=== PATIENT | female | born 1985 | race Caucasian/White ===

== ENCOUNTER 2025-01-18 13:44 | Emergency (ER) | payer OTHER, SELFPAY ==
[2025-01-18] VITALS (7 sets, daily range): BP systolic 119–133; BP diastolic 68–96; PULSE 70–87; RESP 16–19; TEMP 36.3–36.8; O2SAT 95–100
--- NOTE | ~2025-01-18 | XR_ITS ---
EXAMINATION: XR chest 2V 01/18/2025 14:41 INDICATION: Chest pain PROCEDURE: 2 view chest COMPARISON: No prior studies for comparison. FINDINGS: The lungs are clear. The cardiomediastinal silhouette is within normal limits. There are no pleural effusions. There is no pneumothorax suspected. IMPRESSION: 1: NO ACUTE CARDIOPULMONARY DISEASE. Reviewed, dictated and finalized at location A.
--- NOTE | ~2025-01-18 | CT_ITS ---
EXAMINATION: CTA chest PE protocol DATE: 01/18/2025 18:22 CDT INDICATION: Chest pain and shortness of breath with elevated d-dimer a a TECHNIQUE: Computed tomographic angiography (CTA) of the chest was performed with 100 mL Omnipaque-35 0 intravenous contrast. The dose-length product was 1029.08 mGy-cm. Maximum intensity projection 3D-r econstructions of the aorta and other arteries were constructed by the technologist on a separate wor kstation. COMPARISON: None. FINDINGS/OBSERVATIONS: PULMONARY ARTERIES: No filling defect is identified within the main or proximal pulmonary artery. The main pulmonary artery is not enlarged. THORACIC AORTA: No aneurysmal dilatation or dissection is present. The great vessels are intact LUNGS: The lungs are clear MEDIASTINUM: No morphologically suspicious or pathologically enlarged lymph nodes are identified with in the mediastinum or bilateral axilla. BONES OF THE CHEST: No acute fracture. No significant degenerative disease. No lytic or blastic lesions. HEART: The heart is of normal size, without pericardial effusion. UPPER ABDOMEN: The gallbladder is surgically absent. Indeterminate focus of fluid attenuation within the upper pole of the right kidney, likely a cyst for which dedicated ultrasound may be performed for confirmation. IMPRESSION: No pulmonary embolus. No thoracic aortic dissection. The lungs are clear. Indeterminate focus of fluid attenuation within the upper pole of the right kidney, likely a cyst for which dedicated ultrasound may be performed for confirmation. Reviewed, dictated and finalized at location A. IMPRESSION: No pulmonary embolus. No thoracic aortic dissection. The lungs are clear. Indeterminate focus of fluid attenuation within the upper pole of the right kid aspen, likely a cyst for which dedicated ultrasound may be performed for confirma tion.
--- OUTSIDE RECORDS SUMMARY | 2025-01-18 13:47 | XMS_ITS | Encounter Summary ---
Author Organization [facility] Address [address] [place] [address] Phone Care Team Providers Care Tobacco Shaker Name Role Phone Parveen Hall MD Primary Care Provider [phone] Rizwan Miller MD Unavailable Encounter Details Date Type Department Care Team (Late st Contact Info) Description 12/24/2022 Nursing Facility [facility] [place] [place] [address] Mouna Sun MD [address] [place] [address] Social History Tobacco Use Types Packs/Day Years Used Date Smoking Tobacco: Every Day Cigarettes Smokeless Tobacco: Never Alcohol Use Standard Drinks/Week Comments Never 0 (1 standard drink = 0.6 oz pur e alcohol) Sexually Active Control Partners Comments Yes Implant Comments Unknown Sex and Gender Information Value Date Recorded Sex Assigned at Female 04/05/2024 11:54 PM CDT Legal Sex Female 9:25 PM CDT Gender Identity Female 04/05/2024 11:54 PM CDT Sexual Orientation Not on file COVID-19 Exposure Response Date Recorded In the last 10 days, have yo u been in contact with someone who was confirmed or suspected to have Coronavirus/COVID-19? No / Unsure 12/16/2022 9:52 PM CDT documented as of this encounter H&P Notes * J Carlos Silverman 12/24/2022 1:07 PM CDT [facility] Detention History and Physical Chief Complaint: Right facial cellulitis HPI: Sara Borja is a 37 y.o. female who has transferred to [facility] for post-acute care and rehabilitation. Prior to coming to rehabilitation facility patient was hospitalized at [facility] from 12/16/2022 through 12/23/2022 for septicemia from facial cellulitis.At the time of this assessment, the patient was not in any acute distress at the time of this assessment. She says she is doing better but still has some neck pain. She plans on discharging once she completes her course of antibiotics. Patient has morbid obesity and says she snores at night so she would benefit from following up with her PCP as outpatient for a sleep study to check for obstructive sleep apnea. History obtained from: patient, medical records Review of Prior External Notes: [facility] records Allergies: is allergic to acetaminophen-codeine and red dye. Past Medical History: Morbid obesity, Tobacco dependence Surgical History: has a past surgical history that includes Cholecystectomy, Laparoscopic (12/10/2008). Social History: reports that she has been smoking cigarettes. She has been smoking an average of .5packs per day. She has never used smokeless tobacco. She reports current drug use. Drug: Marijuana.She reports that she does not drink alcohol. has 2 daughters. Does not have a home at this point intime. Physical Exam: Vital Signs: All vitals were reviewed in the facility EMR and are stable. Exam: General: Well developed, well nourished, in no distress, morbidly obese Skin: Normal appearance, normal turgor, no rashes, cellulitis on right side of face improving HEENT: Normocephalic, atraumatic, no flaring, swelling of right mandibular angle involving area of right parotid galnd Eyes: nonicteric, intact extra occular movement, PERRL Neck: normal, supple, no lymphadenopathy Heart: regular rate and rhythm, S1, S2 normal, no murmur, click, rub or gallop Lungs: clear to ausculation, normal respirations, normal precautions Abdominal: soft, non-tender; bowel sounds normal; no masses, no organomegaly : external genitalia normal in appearance Extremities: no deformities, joint mobility appears intact, no clubbing Neuro: Non-focal, CN intact, sensory and motor intact Psychological: alert and oriented X3, appropriate mood and affect, Intact judgement and memory Data Review: Lab Results: Lab Results Component Value Date WBC 9.75 12/22/2022 HEMOGLOBIN 11.3 (L) 12/22/2022 HEMATOCRIT 35.5 (L) 12/22/2022 PLATELETCNT 352 12/22/2022 MCV 98.3 (H) 12/22/2022 Lab Results Component Value Date SODIUM 140 12/22/2022 POTASSIUM 3.4 (L) 12/22/2022 CHLORIDE 104 12/22/2022 CO2VEN 25 12/22/2022 GLUCOSE 94 12/22/2022 ANIONGAP 14.4 12/22/2022 BUN 3 (L) 12/22/2022 CREATININE 0.56 (L) 12/22/2022 CALCIUM 8.5 (L) 12/22/2022 No results found for: INR, PTP Imaging: No new imaging. Orders: No new orders Assessment/Plan: 1. Facial cellulitis with septicemia. Her cellulitis on the right side of her face has been improving. She is on IV Ancef through 01/02/2023. Patient has prn oxycodone for pain and hydroxyzine for itching. 2. Generalized weakness and decreased mobilization. The patient is to receive PT and OT at the SNF to improve strength, balance, and mobility back to baseline. 3. Tobacco dependence. Smoking cessation has been strongly encouraged and quitting strategies were discussed with the patient. 4. Morbid Obesity. BMI 43. The patient has been encouraged to lose weight through a healthier diet and exercise and has been educated on the associated health benefits. 5. Anemia. Mild. Hgb stable at 11.3 upon discharge from hospital. Monitor CBC periodically and advise transfusion if Hgb drops below 7.0. VTE Prophylaxis: Mobilization Disposition and escalation or reduction of care: The patient is to receive post- acute care and complete PT and OT at the SNF to improve strength, balance, and mobility back to baseline with the goal of discharging once her IV antibiotic course has been completed. Discharge location is unclear as patient reports that she is currently homeless but has 2 daughters living elsewhere. Advance Care Planning: Aggregate [id number] time, greater than 16 minutes was spent discussing end-of-life care planning with patient/family and/or Power of Environmental Services Lead. Discussed CPR, Intubation, treatment goals, and Quality of life/Intensity of care. Patient desires CPR-Full Treatment I, J Carlos Silverman, acting as a scribe, am personally taking down the notes in the presence of Dr. Mouna Sun M.D. Take no action on this note until reviewed and authenticated by the physician. By: J CARLOS SILVERMAN, 12/24/2022 Primary Care Physician: PARVEEN HALL MD . I evaluated and examined the patient in presence of scribe J Carlos Silverman and reviewed the medical records and the notes above and agree with the content and details of the notes. By: Mouna Sun M.D. Cosigned by Mouna Sun MD at 02/26/2023 4:36 PM CDT documented in this encounter Plan of Treatment Not on file documented as of this encounter Visit Diagnoses Not on filedocumented in this encounter Care Teams Tobacco Shaker Relationship Specialty Start Date End Date Parveen Hall MD [address] [place] [address] PCP - General Family Medicine 12/17/22 Rizwan Miller MD [address] [address] Consulting Physician Colon and Rectal Surgery 04/23/24 documented as of this encounter
--- OUTSIDE RECORDS SUMMARY | 2025-01-18 13:47 | XMS_ITS | Clinical Summary ---
Author Organization [facility] Address [address] [place] [address] Phone Care Team Providers Care Urology Physician Name Role Phone Parveen Moya MD Primary Care Provider [phone] Rizwan Miller MD Unavailable Allergies Active Allergy Reactions Criticality Noted Date Comments Codeine Anaphylaxis 03/27/2024 Red Dye #40 (Allura Red) Anaphylaxis 09/21/2022 Medications ondansetron (ZOFRAN) 4 MG Tablet Take 1-2 Tablets by mouth every 8 hours as needed for Nausea - 1st line. 90 Tablet 04/13/20 Active Additional Information Patient not taking.Reported on 04/25/2024 naloxone HCl (Narcan) 4 MG/0.1ML Liquid 1 Eccles by Nasal route as needed for Opioid Reversal. Administer in one nostril for symptoms of overdose (severe sleepiness, breathing problems, not responsive). Call 911. May repeat 1 spray in alternate nostril in 2-3 minutes if needed. 2 Each 04/13/20 24 Active naloxone HCl (Narcan) 4 MG/0.1ML Liquid 1 Eccles by Nasal route as needed for Opioid Reversal. Administer in one nostril for symptoms of overdose (severe sleepiness, breathing problems, not responsive). Call 911. May repeat 1 spray in alternate nostril in 2-3 minutes if needed. 2 Each 04/13/20 24 Active ondansetron (ZOFRAN-ODT) 4 MG TABLET DISPERSIBLE Take 1 Tablet by mouth every 8 hours as needed for Nausea - 1st line. 20 Tablet 04/22/20 24 Active HYDROmorphone (Dilaudid) 2 MG TabletIndications: Acute diverticulitis Take 1 Tablet by mouth every 6 hours as needed for Moderate or more severe pain. 20 Tablet 04/23/20 24 Active HYDROcodone-acetam inophen (NORCO) 5-325 MG TabletIndications: Torticollis Take 1-2 Tablets by mouth every 4 hours as needed for Moderate or more severe pain. 20 Tablet 11/09/19 25 Active Active Problems Problem Noted Date Diagnosed Date Tobacco dependence 09/07/2023 Diverticulitis 02/26/2023 Morbid obesity 12/19/2022 Abscess of sigmoid colon due to diverticulitis 0 09/22/2022 Hypocalcemia 09/22/2022 Chronic constipation 09/22/2022 Septicemia 09/22/2022 Colonic diverticular abscess 06/06/2022 Tobacco abuse Morbid obesity ETOH abuse Resolved Problems Problem Noted Date Diagnosed Date Resolved Date Acute diverticulitis 03/30/2024 024 Cellulitis of left lower extremity 09/07/2023 09/10/2023 Hyponatremia 12/17/2022 09/10/2023 Facial cellulitis 12/16/2022 12/23/2022 Encounters Date Type Department Care Team Description 11/07/2024 7:15 PM CDT - 11/07/2024 11:55 PM CDT Emergency [facility] Emergency [address] [place] [address] Grant Martin MD Torticollis Discharge Disposition: Discharged to home or Selfcare 11/07/2024 Travel from Last 3 Months Family History Medical History Relation Name Comments No Known Problems Brother No Known Problems Daughter 1 No Known Problems Daughter 2 Congestive Heart Failure Father No Known Problems Half-Brother 1 No Known Problems Half-Brother 2 Other-comment Half-Sister paraplegic Diabetes Mother Stroke Mother Relation Name Status Comments Brother Daughter 1 Alive Daughter 2 Alive Father Half-Brother 1 Alive Half-Brother 2 Alive Half-Sister Mother Alive Social History Tobacco Use Types Packs/Day Years Used Date Smoking Tobacco: Every Day Cigarettes 1 23.6 Started: 2001 Smokeless Tobacco: Never Tobacco Cessation:Ready to Q uit: Not Asked; Counseling Given: Not Answered Alcohol Use Standard Drinks/Week Comments Yes 0 (1 standard drink = 0.6 oz pure alcohol) used to drink 1/5 a day, now less [facility] Utilities Answer Date Recorded In the past 12 months has e electric, gas, oil, or water company threatened to shut off services in your home? Patient declined 04/08/2024 Social Connection and Isolation Panel Answer Date Recorded In a typical week, how many times do you talk on the phone with family, friends, or neighbors? Patient declined 04/08/2024 How often do you get togethe r with friends or relatives? Patient declined 04/08/2024 How often do you attend adventism or islam serv ices? Patient declined 04/08/2024 Do you belong to any clubs o r organizations such as adventism groups, unions, fraternal or athletic groups, or school groups? Patient declined 04/08/2024 How often do you attend meet ings of the clubs or organizations you belong to? Patient declined 04/08/2024 Are you , , di vorced, , never , or living with a partner? Patient declined 04/08/2024 AUDIT-C Answer Date Recorded Q1: How often do you have a drink containing alc ohol? Patient declined 04/08/2024 Q2: How many drinks containi ng alcohol do you have on a typical day when you are drinking? Patient declined 04/08/2024 Q3: How often do you have si x or more drinks on one occasion? Patient declined 04/08/2024 Overall Financial Resource Strain (CARDIA) Answe r Date Recorded How hard is it for you to pa y for the very basics like food, housing, medical care, and heating? Patient declined 04/08/2024 [facility] - Occupational Stress Questionnaire Answer Date Recorded Do you feel stress - tense, restless, nervous, or anxious, or unable to sleep at night because your mind is troubled all the time - these days? Patient declined 04/08/2024 Exercise Vital Sign Answer Date Recorde d On average, how many days pe r week do you engage in moderate to strenuous exercise (like a brisk walk)? Patient declined On average, how many minutes do you engage in exercise at this level? Patient declined 04/08/2024 Hunger Vital Sign Answer Date Recorded Within the past 12 months, y ou worried that your food would run out before you got the money to buy more. Patient declined Within the past 12 months, t he food you bought just didn't last and you didn't have money to get more. Patient declined 08/2023 PRAPARE - Transportation Answer Date Re corded In the past 12 months, has l ack of transportation kept you from medical appointments or from getting medications? Patient declined 04/08/2024 In the past 12 months, has l ack of transportation kept you from meetings, work, or from getting things needed for daily living? Patient declined 04/08/2024 Housing Stability Vital Sign Answer Eric e Recorded In the last 12 months, was t here a time when you were not able to pay the mortgage or rent on time? Patient declined 09/07/19 In the last 12 months, how many places have you lived? 1 09/07/2023 In the last 12 months, was t here a time when you did not have a steady place to sleep or slept in a senior care (including now)? Patient declined 09/07/2023 Housing Stability Vital Sign Answer Eric e Recorded In the last 12 months, was t here a time when you were not able to pay the mortgage or rent on time? Patient declined 04/08/20 In the past 12 months, how m any times have you moved where you were living? 1 04/08/2024 At any time in the past 12 m [facility], were you homeless or living in a senior care (including now)? Patient declined 04/08/2024 Sexually Active Control Partners Comments Yes Implant Male Comments No Sex and Gender Information Value Date Recorded Sex Assigned at Female 04/05/2024 11:54 PM CDT Legal Sex Female 9:25 PM CDT Gender Identity Female 04/05/2024 11:54 PM CDT Sexual Orientation Not on file Last Filed Vital Signs Vital Sign Reading Time Taken Comments Blood Pressure 149/62 11/07/2024 11:30 PM CDT Pulse 71 11/07/2024 11:30 PM CDT Temperature 36.7 C (98.1 F) 11/07/2024 7:20 PM CDT Respiratory Rate 18 11/07/2024 7:16 PM CDT Oxygen Saturation 98% 11/07/2024 11:30 PM CDT Inhaled Oxygen Concentration - - Weight 99.8 kg (220 lb) 11/07/2024 7:16 PM CDT Height 160 cm (5' 3) 11/07/2024 7:16 PM CDT Body Mass Index 38.97 11/07/2024 7:16 PM CDT Plan of Treatment Health Maintenance Due Date Last Done Comments TdaP Immunization 1986 Hepatitis B Immunization (1 of 3 - 19+ 3-dose series) 2005 Pneumococcal Immunization Co mbined (1 of 2 - PCV) 2005 Pap Smear 2007 Human Papillomavirus (HPV) Immunization (1 - 3-dose SCDM series) 2013 Cervical Cancer Screening (CCS) 2016 HPV/Cotest 2016 SARS-COV-2 Immunization ( season) 2024 Influenza Immunization (#1) 2025 Respiratory Syncytial Virus (RSV) Immunization (Adult) (1 - 1-dose 75+ series) 2061 Hepatitis C Virus (HCV) Screening Completed 023 Meningococcal Immunization (ACWY) Aged Out No longer eligible based on patient's age to complete this topic Rotavirus Immunization Aged Out No lo nger eligible based on patient's age to complete this topic Procedures Procedure Name Priority Date/Time Associated Diagnosis Comments CT CERVICAL SPINE WO/ CONTRAST Stat with Interpretation 11/07/2024 8:47 PM CDT GOLD TOP TUBE STAT 11/07/2024 7:30 PM CDT BLUE TOP TUBE STAT 11/07/2024 7:30 PM CDT CBC WITH AUTO DIFFERENTIAL STAT 11/07/2024 7:30 PM CDT EXTRA TUBES STAT 11/07/2024 7:30 PM CDT ERYTHROCYTE SEDIMENTATION RATE (ESR) STAT 11/07/2024 7:30 PM CDT CMP (COMPREHENSIVE METABOLIC PANEL) STAT 11/07/2024 7:30 PM CDT COMPLETE BLOOD COUNT (CBC) WITH DIFF STAT 11/07/2024 7:30 PM CDT from Last 3 Months Results * CT CERVICAL SPINE WO/ CONTRAST (11/07/2024 8:47 PM CDT) Anatomical Region Laterality Modality Spine N/A Computed Tomogra phy 11/07/2024 9:00 PM CDT Impressions 11/07/2024 9:02 PM CDT IMPRESSION: Unremarkable cervical spine CT. Narrative 11/07/2024 9:02 PM CDT EXAM DESCRIPTION: CT CERVICAL SPINE WO/ CONTRAST REASON FOR STUDY: Neck pain TECHNIQUE: Axial images through the cervical spine with sagittal and coronal reformatted images. Automated exposure control was used as a dose optimization technique for this examination. COMPARISON: None FINDINGS: ALIGNMENT: Normal. VERTEBRAE: No fracture. Vertebral body heights well-maintained. DISCS: Intervertebral disc narrowing and minor marginal spurring is seen at C5-C6. Other levels are better preserved. HARDWARE: None in the spine. INDIVIDUAL DISC LEVELS: No significant osseous spinal canal or neural foraminal stenosis. UPPER THORACIC: Incompletely imaged. No significant osseous spinal stenosis or osseous neural foraminal stenosis. SKULL BASE: No significant finding. LUNG APICES: No significant abnormality. NECK SOFT TISSUES: No significant abnormality. OTHER: No other significant findings. THIS IS AN ELECTRONICALLY VERIFIED FINAL REPORT 11/07/2024 9:00 PM - Electronically signed by Ryan Talavera M.D. KH: RODRI Report ID: [id number] Reading Location: [id number] Procedure Note Ryan Talavera MD - 11/07/2024 EXAM DESCRIPTION: CT CERVICAL SPINE WO/ CONTRAST REASON FOR STUDY: Neck pain TECHNIQUE: Axial images through the cervical spine with sagittal and coronal reformatted images. Automated exposure control was used as a dose optimization technique for this examination. COMPARISON: None FINDINGS: ALIGNMENT: Normal. VERTEBRAE: No fracture. Vertebral body heights well-maintained. DISCS: Intervertebral disc narrowing and minor marginal spurring is seen at C5-C6. Other levels are better preserved. HARDWARE: None in the spine. INDIVIDUAL DISC LEVELS: No significant osseous spinal canal or neural foraminal stenosis. UPPER THORACIC: Incompletely imaged. No significant osseous spinal stenosis or osseous neural foraminal stenosis. SKULL BASE: No significant finding. LUNG APICES: No significant abnormality. NECK SOFT TISSUES: No significant abnormality. OTHER: No other significant findings. THIS IS AN ELECTRONICALLY VERIFIED FINAL REPORT 11/07/2024 9:00 PM - Electronically signed by Ryan Talavera M.D. KH: RODRI Report ID: [id number] Reading Location: [id number] IMPRESSION: Unremarkable cervical spine CT. Grant Martin MD IMG CT ORDERABLES Final R esult * GOLD TOP TUBE (11/07/2024 7:30 PM CDT) Blood No Phlebotomy Charged / Unknown 11/07/2024 7:30 PM CDT 11/07/2024 8:40 PM CDT Grant Martin MD CHEMISTRY ORDERABLES Cora l Result Performing Organization Address City/[facility] Co de Phone Number [facility] [address] [place] [address] * BLUE TOP TUBE (11/07/2024 7:30 PM CDT) Blood No Phlebotomy Charged / Unknown 11/07/2024 7:30 PM CDT 11/07/2024 8:40 PM CDT Grant Martin MD HEMATOLOGY ORDERABLES Fin al Result Performing Organization Address City/[facility] Co de Phone Number [facility] [address] [place] [address] * (ABNORMAL) CBC WITH AUTO DIFFERENTIAL (11/07/2024 7:30 PM CDT) WBC 11.15 4.00 - 12.00 10(3)/mcL 11/07/2024 8:43 PM CDT [facility] RBC 3.94 3.80 - 5.30 10(6)/mcL 11/07/2024 8:43 PM CDT [facility] HEMOGLOBIN (HGB) 13.3 12.0 - 15.8 g/dL 11/07/2024 8:43 PM CDT [facility] HEMATOCRIT (HCT) 40.3 36.0 - 47.0 % 11/07/2024 8:43 PM CDT [facility] MCV 102.3(H) 82.0 - 96.0 fL 11/07/2024 8:43 PM CDT [facility] MCH 33.8 26.0 - 34.0 pg 11/07/2024 8:43 PM CDT [facility] MCHC 33.0 31.0 - 36.0 g/dL 11/07/2024 8:43 PM CDT [facility] PLATELET COUNT 334 140 - 440 10(3)/mcL 11/07/2024 8:[address] [facility] RDW 15.0 11.8 - 15.5 % 11/07/2024 8:[address] [facility] MPV 9.1(L) 9.7 - 12.4 fL 11/07/2024 8:[address] [facility] NEUTROPHILS 78.2(H) 47.0 - 73.0 % 11/07/2024 8:43 PM CDT [facility] LYMPHOCYTES 16.0(L) 18.0 - 42.0 % 11/07/2024 8:43 PM CDT [facility] MONOCYTES 4.3 4.0 - 12.0 % 11/07/2024 8:[address] [facility] EOSINOPHILS 1.1 0.0 - 5.0 % 11/07/2024 8:43 PM CDT [facility] BASOPHILS 0.4 0.0 - 1.0 % 11/07/2024 8:43 PM CDT [facility] ABSOLUTE NEUTROPHILS 8.73(H) 1.60 - 7.70 10(3)/[facility] 11/07/2024 8:43 PM CDT [facility] ABSOLUTE LYMPHOCYTES 1.78 1.30 - 3.20 10(3)/[facility] 11/07/2024 8:43 PM CDT [facility] ABSOLUTE MONOCYTES 0.48 0.20 - 1.00 10(3)/[facility] 11/07/2024 8:43 PM CDT [facility] ABSOLUTE EOSINOPHIL 0.12 0.00 - 0.40 10(3)/[facility] 11/07/2024 8:43 PM CDT [facility] ABSOLUTE BASOPHILS 0.04 0.00 - 0.10 10(3)/[facility] 11/07/2024 8:43 PM CDT [facility] NRBC PER 100 WBC 0 11/08/19 25 8:43 PM CDT [facility] Blood Venipuncture / Unknown 11/07/2024 7:30 PM CDT 11/07/2024 8:41 PM CDT Grant Martin MD HEMATOLOGY ORDERABLES Fin al Result [facility] [address] [place] [address] * (ABNORMAL) ERYTHROCYTE SEDIMENTATION RATE (ESR) (11/07/2024 7:30 PM CDT) ESR (SED RATE, ERYTHROCYTE SEDIMENTATION RATE) 52(H) <20 mm/h 11/07/2024 8:48 PM CDT [facility] Comment: Patients presenting with increased level of fibrinogen, gamma globulins, or abnormally shaped RBCs could affect the results for the erythrocyte sedimentation rate (ESR). Results should be clinically correlated. Blood Venipuncture / Unknown 11/07/2024 7:30 PM CDT 11/07/2024 8:41 PM CDT Grant Martin MD HEMATOLOGY ORDERABLES Fin al Result [facility] [address] [place] [address] * (ABNORMAL) CMP (COMPREHENSIVE METABOLIC PANEL) (11/07/2024 7:30 PM CDT) SODIUM 138 136 - 145 mmol/L 11/07/2024 9:03 PM CDT [facility] POTASSIUM 3.7 3.5 - 5.1 mmol/L 11/07/2024 9:03 PM CDT [facility] CHLORIDE 108(H) 98 - 107 mmol/L 11/07/2024 9:03 PM CDT [facility] CO2, VENOUS 23 22 - 30 mmol/L 11/07/2024 9:[address] [facility] ANION GAP 10.7 <18.0 mmol/L 11/07/2024 9:[address] [facility] GLUCOSE 108(H) 70 - 99 mg/dL 11/07/2024 9:[address] [facility] BUN 10 5 - 18 mg/dL 11/07/2024 9:[address] [facility] CREATININE, BLOOD 0.83 0.60 - 1.00 mg/dL 11/07/2024 9:[address] [facility] BUN/CREATININE RATIO 12 12 - 20 ratio 11/07/2024 9:[address] [facility] TOTAL PROTEIN 7.3 6.0 - 8.0 g/dL 11/07/2024 9:[address] [facility] ALBUMIN 3.7 3.5 - 5.0 g/dL 11/07/2024 9:[address] [facility] A/G RATIO 1.0 1.0 - 2.2 11/07/2024 9:[address] [facility] CALCIUM 8.8 8.7 - 10.5 mg/dL 11/07/2024 9:[address] [facility] T BILI 0.3 0.2 - 1.2 mg/dL 11/07/2024 9:03 PM CDT [facility] SGOT (AST) 25 <43 U/L 11/07/2024 9:03 PM CDT [facility] SGPT (ALT) 26 <56 U/L 11/07/2024 9:03 PM CDT [facility] ALKALINE PHOSPHATASE 89 40 - 150 U/L 11/07/2024 9:03 PM CDT [facility] GFR, ESTIMATED >60 >=60 11/07/2024 9:[address] [facility] Comment: Creatinine Clearance is the preferred criteria for selecting drug dose adjustments in renally impaired patients. The GFR is provided as additional pertinent clinical information. GFR is reported in mL/min/1.73 sq m. Calculation based on the Chronic Kidney Disease Epidemiology Collaboration (CKD- EPI) equation refit without adjustment for race. GFR, EST. >60 >=60 025 9:03 PM CDT [facility] GFR, EST. NONAFRICAN >60 >=60 11/07/2024 9:[address] [facility] Blood Venipuncture / Unknown 11/07/2024 7:30 PM CDT 11/07/2024 8:41 PM CDT Grant Martin MD CHEMISTRY ORDERABLES Cora hastings Result [facility] [address] [place] [address] from Last 3 Months Insurance MEDICAID [employer] [facility] Advance Directives * Full Code (Latest Code Status on File) Date Activated Date Inactivated Comments 04/08/2024 7:02 PM CPR-Full Treat ment: FULL ARREST: Attempt Resuscitation/CPR wit intubation and mechanical ventilation. PRE-ARREST: Use entire range of life support measures to stabilize the patient. * Full Code Date Activated Date Inactivated Comments 03/30/2024 1:30 PM 04/08/2024 7:02 PM CPR-Full Tr eatment: FULL ARREST: Attempt Resuscitation/CPR wit intubation and mechanical ventilation. PRE-ARREST: Use entire range of life support measures to stabilize the patient. * Full Code Date Activated Date Inactivated Comments 09/07/2023 10:20 AM 09/10/2023 9:03 PM CPR-Full Merly tment: FULL ARREST: Attempt Resuscitation/CPR wit intubation and mechanical ventilation. PRE-ARREST: Use entire range of life support measures to stabilize the patient. * Full Code Date Activated Date Inactivated Comments 02/26/2023 1:11 PM 02/27/2023 6:32 PM CPR-Full Edgar atment: FULL ARREST: Attempt Resuscitation/CPR wit intubation and mechanical ventilation. PRE-ARREST: Use entire range of life support measures to stabilize the patient. * Full Code Date Activated Date Inactivated Comments 12/16/2022 10:32 PM 12/23/2022 3:07 PM CPR-Full Tr eatment: FULL ARREST: Attempt Resuscitation/CPR wit intubation and mechanical ventilation. PRE-ARREST: Use entire range of life support measures to stabilize the patient. Care Teams Urology Physician Relationship Specialty Start Date End Date Parveen Moya MD [address] [place] [address] PCP - General Family Medicine 12/17/22 Rizwan Miller MD [address] [address] Consulting Physician Colon and Rectal Surgery 04/23/24
--- OUTSIDE RECORDS SUMMARY | 2025-01-18 13:47 | XMS_ITS | Encounter Summary ---
Author Organization [facility] Address [address] [place] [address] Phone Care Team Providers Care Gin Clerk Name Role Phone Parveen Moya MD Primary Care Provider [phone] Rizwan Miller MD Unavailable Encounter Details Date Type Department Care Team (Late st Contact Info) Description 12/29/2022 Nursing Facility [facility] [address] CUSTODIAL SERVICES [facility] [place] [address] Rodríguez Patel, [facility] [address] [place], [place] [id number] Social History Tobacco Use Types Packs/Day Years [...] PM CDT documented as of this encounter Progress Notes * Rodríguez Patel, PAC - 12/29/2022 11:54 AM CDT [facility] NURSING PROGRESS NOTE Sara Borja is a 37 y.o. female at [facility] for rehabilitation. Prior to coming to rehabilitation facility patient was hospitalized at [facility] from 12/16/2022 through 12/23/2022 for septicemia from facial cellulitis. Subjective: Interval History: Patient is currently lying comfortably in bed. Still having quite a bit of pain and has some swelling below her right ear at the angle of her drawbut overall seems to be improving. Has no acute medical symptoms or concerns at this time. Does claim that sometime she does not get the IV antibiotics as prescribed by nursing staff for unclear reasons. Discussed with nursing staff who says that these claims are fictitious. 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 Upon arrival to facility her 1st 2 doses of antibiotics were missed because pharmacy needs some time to get these medications in house. Clinically she looks well. Past medical history: Obesity Cigarette smoking Family History Problem Relation Age of Onset ??? No Known Problems Mother ??? No Known Problems Father Social History Socioeconomic History ??? Marital status: Single Spouse name: Not on file ??? Number of children: Not on file ??? Years of education: Not on file ??? Highest education level: Not on file Occupational History ??? Not on file Tobacco Use ??? Smoking status: Every Day Packs/day: 0.50 Types: Cigarettes ??? Smokeless tobacco: Never Substance and Sexual Activity ??? Alcohol use: Never ??? Drug use: Yes Types: Marijuana ??? Sexual activity: Yes control/protection: Implant Other Topics Concern ??? Not on file Social History Narrative ??? Not on file Past Surgical History: Procedure Laterality Date ??? CHOLECYSTECTOMY, LAPAROSCOPIC 12/10/2008 Review of Systems: A 14 point comprehensive review of systems was negative except what is documented in interval history above. Objective: Exam: Vital Signs: Recent vital signs were reviewed in the electronic medical records at nursing facility and are unremarkable. General: Well developed, well nourished, in no distress - pleasant, obese Skin: Normal appearance, normal turgor, no rashes - at the angle of right draw pedal that ear thereis an approximately 4 cm in diameter indurated area with some faint overlying erythema, no fluctuance or drainage HEENT: Normocephalic, atraumatic, no flaring Eyes: nonicteric, intact extra occular movement, PERRL Neck: normal, supple, no lymphadenopathy Heart: regular rate and rhythm, S1, S2 normal, no murmur, click, rub or gallop Lungs: clear to ausculation, normal respirations with no accessory muscle use, normal rate Abdominal: soft, non-tender; bowel sounds normal; no masses, no organomegaly Extremities: no deformities, joint mobility appears intact, no clubbing Neuro: Non-focal, CN intact, sensory and motor intact Psychological: alert and oriented X3, appropriate mood and affect, Intact judgement and memory Lab Results: 12/22/2022 while at the hospital: BMP with potassium 3.4 otherwise unremarkable. CBC with hemoglobin 11.3 otherwise unremarkable. Imaging: None Assessment/Plan: Facial cellulitis with septicemia On IV Ancef P.r.n. pain medications 12/29/2022: Infection continues to improve. Originally supposed to be on IV Ancef until 01/02/2023 per Infectious Disease. Due to pharmacy issues and patient leaving the facility, she has missed a total of 3 doses so I will recommend continuing it through 01/03/2023. After which PICC line can be pulled. Cigarette smoking Educated on cessation options encouraged to quit Morbid obesity Educated on weight loss strategies and encouraged to lose weight VTE Prophylaxis: Activity I discussed advanced care planning with this patient. Disposition: From medical standpoint she will complete her IV antibiotics on the evening of 01/03/2023, after which PICC line can be pulled and she can be discharged. This note was dictated using M*Modal fluency dictation system and there may be errors in body care manager. Despite proof reading the note, there may be mistakes and I apologize for those. By: RAISSA Diaz, 12/29/2022 11:54 AM CDT documented in this encounter Plan of Treatment Not on file documented as of this encounter Visit Diagnoses Not on filedocumented in this encounter Care Teams Gin Clerk Relationship Specialty Start Date End Date Parveen Moya MD [address] [place] [address] PCP - General Family Medicine 12/17/22 Rizwan Miller MD [address] [address] Consulting Physician Colon and Rectal Surgery 04/23/24 documented as of this encounter
--- OUTSIDE RECORDS SUMMARY | 2025-01-18 13:47 | XMS_ITS | Clinical Summary ---
Author Organization [facility] [employer] [facility] Address [address] [place] [address] Care Team Providers Care Clinical Engineer Name Role Phone Unavailable Primary Care Provider Unavailabl e Source Comments [facility],non-owned Affiliates and Associated Physician Practices is amultiple site organization consisting of ambulatory clinics and hospital sitesin [place], [place], [place] and [place]. This disclosure is being madepursuant to the Care Everywhere program and may not contain all information available regarding this patient. Last updated 18.[facility] Allergies Active Allergy Reactions Criticality Noted Date Comments Acetaminophen-Codeine Angioedema High 09/25/2022 Medications * Be aware that medications may not be up to date on this document. Alwaysverify current medications with the patient. acetaminophen (Tylenol) 500 MG tabletIndicati ons:Pain Take 1 (one) tablet by mouth every 4 hours as needed for Fever or Pain Maximum allowable Acetaminophen amount = 4 Grams (4000 mg) / 24 hours. Reasons: Pain Active ondansetron (Zofran) 4 MG tablet Take 1 (one) tablet by mouth every 8 hours as needed for Nausea/Vomiting 15 tablet 3 Active HYDROcodone-ac etaminophen ([place]) 5-325 MG tabletIndicati ons:Diverticul itis of colon Take 1 (one) tablet by mouth every 6 hours as needed for Pain 12 tablet 3 Active polyethylene glycol (Golytely) 236 g solution Drink prep solution at 5pm the night before your colonoscopy 4000 mL 3 Active Active Problems Problem Noted Date Diagnosed Date Diverticulitis of colon 09/24/2022 Smoking greater than 10 pack years 09/19/2022 Social History Tobacco Use Types Packs/Day Years Used Date Smoking Tobacco: Some Days Cigarettes 0.3 12.6 Started: 2012 Tobacco Cessation:Ready to Q uit: No; Counseling Given: No Alcohol Use Standard Drinks/Week Comments Never 0 (1 standard drink = 0.6 oz pur e alcohol) AUDIT-C Answer Date Recorded Q1: How often do you have a drink containing alcohol? Never 09/25/2022 Q2: How many drinks containi ng alcohol do you have on a typical day when you are drinking? Patient does not drink Q3: How often do you have si x or more drinks on one occasion? Never 09/25/2022 Overall Financial Resource Strain (CARDIA) Answe r Date Recorded How hard is it for you to pa y for the very basics like food, housing, medical care, and heating? Very hard 09/25/2022 [facility] of Occupat ional Health - Occupational Stress Questionnaire Answer Date Recorded Do you feel stress - tense, restless, nervous, or anxious, or unable to sleep at night because your mind is troubled all the time - these days? Very much 09/25/2022 Hunger Vital Sign Answer Date Recorded Within the past 12 months, y ou worried that your food would run out before you got the money to buy more. Sometimes true Within the past 12 months, t he food you bought just didn't last and you didn't have money to get more. Sometimes true PRAPARE - Transportation Answer Date Re corded In the past 12 months, has l ack of transportation kept you from medical appointments or from getting medications? No 09/05 In the past 12 months, has l ack of transportation kept you from meetings, work, or from getting things needed for daily living? No 09/25/2022 Housing Stability Vital Sign Answer Eric e Recorded In the last 12 months, was t here a time when you were not able to pay the mortgage or rent on time? Yes 09/25/2022 In the last 12 months, how many places have you lived? 3 09/25/2022 In the last 12 months, was t here a time when you did not have a steady place to sleep or slept in a half-way (including now)? Yes 09/25/2022 Comments No Sex and Gender Information Value Date Recorded Sex Assigned at Not on file Legal Sex Female 3:51 PM CDT Gender Identity Not on file Sexual Orientation Not on file Last Filed Vital Signs Vital Sign Reading Time Taken Comments Blood Pressure 91/57 10/10/2022 6:13 AM CDT Pulse 45 10/10/2022 6:13 AM CDT Temperature 36.7 C (98.1 F) 10/10/2022 6:13 AM CDT Respiratory Rate 18 10/09/2022 8:24 PM CDT Oxygen Saturation 100% 10/10/2022 6:13 AM CDT Inhaled Oxygen Concentration - - Weight 118.8 kg (262 lb) 09/25/2022 12:49 PM CDT Height 160 cm (5' 2.99) 10/06/2022 9:58 AM CDT Body Mass Index 46.42 09/25/2022 12:49 PM CDT Plan of Treatment Health Maintenance Due Date Last Done Comments DTAP/TDAP/TD VACCINES (1 - Tdap) 2005 HEPATITIS B VACCINE (1 of 3 - 19+ 3-dose series) 2005 PNEUMOCOCCAL VACCINE (1 of 2 - PCV) 2005 PAP SMEAR 2007 HPV VACCINE (1 - 3-dose SCDM series) 2013 COVID-19 VACCINE (1 - 2023-2 5 season) 2024 DEPRESSION SCREENING 06/06/2024 INFLUENZA VACCINE (#1) 2025 ZOSTER VACCINE (1 of 2) 2036 HEPATITIS C SCREENING Completed 09/28/2022 HIV SCREENING Completed 09/28/2022 HIB VACCINE Aged Out No longer eligi ble based on patient's age to complete this topic MENINGOCOCCAL (Group B) VACC INE SHARED DECISION-MAKING Aged Out No longer eligibl e based on patient's age to complete this topic MENINGOCOCCAL GROUPS A/C/Y/W VACCINE Aged Out No longer eligible b ased on patient's age to complete this topic Procedures Procedure Name Priority Date/Time Associated Diagnosis Comments HEPATITIS C AB SCREEN RFLX NAAT QUANT STAT 09/28/2022 8:15 AM CDT HIV-1 HIV-2 ANTIBODY + HIV P24 AG PANEL STAT 09/28/2022 8:15 AM CDT from Last 3 Months or Most Recently Relevant to Health Maintenance Results * HEPATITIS C AB SCREEN RFLX NAAT QUANT (09/28/2022 8:15 AM CDT) Hepatitis C Antibody Non-react julián Non-reac tive 09/28/2022 9:30 AM CDT [facility] Comment:Hepatitis C Antibody screen indicates no serologic evidence of past or current infection with Hepatitis C Virus. Patients with unexplained liver disease who are immunocompromised or suspected of having acute Hepatitis C infection may benefit from Nucleic Acid Test (CINDY) for Hepatitis C Viral RNA to confirm Hepatitis C status. Blood BLOOD SPECIMEN / Unknown Lab Venipuncture / Unknown 09/28/2022 8:15 AM CDT 09/28/2022 8:39 AM CDT Dylon Betancourt MD LAB - CHEMISTRY ORDERABLES Fin al Result Performing Organization Address City/[facility]/ZIP Co de Phone Number [address] [address], [place] [phone] * HIV-1 HIV-2 ANTIBODY + HIV P24 AG PANEL (09/28/2022 8:15 AM CDT) Pathologist [facility] HIV Antigen/Antibod y 1 & 2 Non-reacti ve Non-react julián 09/28/2022 9:30 AM CDT [facility] Comment:No Laboratory eviden ce of HIV infection. Blood BLOOD SPECIMEN / Unknown Lab Venipuncture / Unknown 09/28/2022 8:15 AM CDT 09/28/2022 8:39 AM CDT Dylon Betancourt MD LAB - CHEMISTRY ORDERABLES Fin al Result Performing Organization Address City/[facility]/ZIP Co de Phone Number [address] [address], [place] [phone] from Last 3 Months or Most Recently Relevant to Health Maintenance Insurance MEDICAID [employer] [place] Advance Directives * Full Code (Latest Code Status on File) Date Activated Date Inactivated Comments 09/25/2022 12:42 PM 10/10/2022 4:09 PM
--- NOTE | 2025-01-18 13:58 | ECG_ITS ---
Test Date: 2025-01-18 14:06:27 Measurements Intervals [place] Rate: 87 P: 38 VA: 156 QRS: 4 QRSD: 97 T: 39 QT: 385 QTc: 466 Interpretive Statements SINUS RHYTHM CONSIDER ANTERIOR INFARCT, AGE INDETERMINATE BASELINE ARTIFACT- I, III, AVL, V5-V6 ABNORMAL ECG No previous ECG available for comparison Electronically Signed On 01-18-2025 14:18:23 CDT by Toni Brannon D.O.
[2025-01-18 14:19] LABS: Hematocrit 42.3 % (37.0-47.0); Hemoglobin 13.7 g/dL (12.0-15.0); Immature Granulocyte Percent A 0.4 % (0-0.5); Lymphocytes Absolute Auto 1.37 K/mm3 (0.9-3.2); Mean Corpuscular HGB Conc 32.4 g/dl (32-36); Mean Corpuscular Hemoglobin 31.5 pg (26-34); Mean Corpuscular Volume 97.2 fl (80-100); Nucleated Red Blood Cells Absolute Auto 0.000 K/mm3 (0.0-0.012); Nucleated Red Blood Cells Perc 0.0 % (0.0-0.2); Platelet Count Result 324 k/mm3 (150-375); Red Blood Count 4.35 M/mm3 (4.2-5.4); White Blood Count 7.2 K/mm3 (4.5-10.0)
[2025-01-18 14:29] LABS: INR 1.0; Prothrombin Time 13.5 Seconds (11.1-14.7)
[2025-01-18 14:30] LABS: Partial Thromboplastin Time 29.8 Seconds (22.3-36.8)
[2025-01-18 14:30] LABS: Alanine Aminotransferase 32 U/L (6-35); Albumin Level 4.2 g/dL (3.5-5.1); Alkaline Phosphatase 93 U/L (38-126); Anion Gap 8 mmol/L (4-12); Aspartate Amino Transferase 36 U/L (14-36); Bilirubin,Total 1.0 mg/dL (0.2-1.3); Blood Urea Nitrogen 7 mg/dL (7-17); Calcium 9.5 mg/dL (8.4-10.2); Carbon Dioxide 24 mmol/L (22-30); Chloride 108 mmol/L (98-107); Estimated CRCL calculation 115 ml/min; Estimated Glomerular Filt Rate > 60; Glucose 117 mg/dL (65-110); Lipase 24 U/L (23-300); Potassium 3.7 mmol/L (3.4-5.0); Sodium 140 mmol/L (137-145); Total Protein 8.3 g/dL (6.3-8.2)
[2025-01-18 14:41] LABS: Troponin I < 0.012 ng/mL (0.000-0.034)
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
--- OUTSIDE RECORDS SUMMARY | 2025-01-18 16:18 | XMS_ITS | Clinical Summary ---
Author Organization [facility] [employer] Address [address] [place] [address] Care Team Providers Care Clinical Nursing Professor Name Role Phone Unavailable Primary Care Provider Unavailabl e Source Comments [facility],non-owned Affiliates and Associated Physician Practices is amultiple site organization consisting of ambulatory clinics and hospital sitesin [place], [place], [place] and [place]. This disclosure is being madepursuant to the Care Everywhere program and may not contain all information available regarding this patient. Last updated 18.[facility] Allergies Active Allergy Reactions Criticality Noted Date [...] Nausea/Vomiting 15 tablet 3 Active HYDROcodone-ac etaminophen ([place]) 5-325 MG tabletIndicati ons:Diverticul itis of colon [...] medical care, and heating? Very hard 09/25/2022 [facility] of Occupat ional Health - Occupational Stress [...] place to sleep or slept in a retirement (including now)? Yes 09/25/2022 Comments No Sex [...] julián Non-reac tive 09/28/2022 9:30 AM CDT [facility] Comment:Hepatitis C Antibody screen indicates no [...] ORDERABLES Fin al Result Performing Organization Address City/[facility]/ZIP Co de Phone Number [address] [address], [place] [phone] * HIV-1 HIV-2 ANTIBODY + HIV P24 AG PANEL (09/28/2022 8:15 AM CDT) Pathologist [facility] HIV Antigen/Antibod y 1 & 2 Non-reacti ve Non-react julián 09/28/2022 9:30 AM CDT [facility] Comment:No Laboratory eviden ce of HIV infection. Blood BLOOD SPECIMEN / Unknown Lab Venipuncture / Unknown 09/28/2022 8:15 AM CDT 09/28/2022 8:39 AM CDT Dylon Betancourt MD LAB - CHEMISTRY ORDERABLES Fin al Result Performing Organization Address City/[facility]/ZIP Co de Phone Number [address] [address], [place] [phone] from Last 3 Months or Most Recently Relevant to Health Maintenance Insurance MEDICAID [employer] [place] Advance Directives * Full Code (Latest Code Status on File) Date Activated Date Inactivated Comments 09/25/2022 12:42 PM 10/10/2022 4:09 PM
[2025-01-18 16:28] LABS: NT Pro B Type Natriuretic Pept 64 pg/mL (19.9-100)
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
--- NOTE | 2025-01-18 17:16 | ECG_ITS ---
Test Date: 2025-01-18 17:22:35 Measurements Intervals [place] Rate: 73 P: 40 ND: 147 QRS: 28 QRSD: 90 T: 29 QT: 410 QTc: 454 Interpretive Statements SINUS RHYTHM POSSIBLE LEFT ATRIAL ENLARGEMENT BORDERLINE R WAVE PROGRESSION, ANTERIOR LEADS MINIMAL Q WAVES- INFERIOR LEADS BASELINE ARTIFACT- I, II, III, AVR, AVL, AVF, V1-V2 BORDERLINE ECG Compared to ECG 01/18/2025 14:06:27 NO SIGNIFICANT CHANGE Electronically Signed On 01-18-2025 18:54:41 CDT by Toni Brannon D.O.
[2025-01-18] MEDS: LACTATED RINGERS 2,000 ML 999 ML IV CONT (17:28)
[2025-01-18 17:48] LABS: Cannabinoid Screen Urine Positive (Negative)
[2025-01-18 17:54] LABS: Troponin I < 0.012 ng/mL (0.000-0.034)
[2025-01-18 18:05] LABS: Pregnancy On Board Control Y
== END 2025-01-18 18:56 | disposition home or self-care (01) ==
PROVIDERS: Emergency Provider Emergency Medicine
DX: T67.5XXA Heat exhaustion, unspecified, initial encounter (principal); R07.89 Other chest pain; Z59.00 Homelessness unspecified; R94.31 Abnormal electrocardiogram [ECG] [EKG]; X30.XXXA Exposure to excessive natural heat, initial encounter
CPT/HCPCS: 36415; 71046; 71275; 80053; 80307; 81025; 82077; 83690; 83880; 84484; 85025; 85380; 85610; 85730; 93005; 96360; 99284; J7120; Q9967